=== PATIENT | male | born 1950 | race Caucasian/White ===

== ENCOUNTER 2017-06-10 06:28 | Day surgery (SDC) | payer BC ==
[~2017-06-10] VITALS: Ht 175.3 cm; Wt 141.2 kg
[~2017-06-10 06:28] MED LIST: ASPIRIN81 M2 PO; ATORVASTATIN CA20 MG PO; BYSTOLIC10 MG PO; CARDURA4 MG PO; CENTRUM SILVER1 EAC1 PO; CLARITIN10 M3 PO; CLONIDINE HCL0.1 M1 PO; DIOVAN HCT 31 TABLE1 PO; NIFEDIPINE ER30 MG PO; POTASSIUM CHLO20 ME2 PO; TEMAZEPAM15 MG PO
[2017-06-10 14:00] VITALS: BP 189/85
[2017-06-10 20:00] VITALS: BP 180/78
[2017-06-10 23:55] VITALS: BP 152/70
[2017-06-11 04:00] VITALS: BP 161/73
[2017-06-11 05:36] LABS: BASOPHIL (%) 0.5 % (0-1); EOSINOPHIL (%) 2.7 % (0-5); EOSINOPHIL COUNT 0.2 K/uL (0-0.3); HEMATOCRIT 39.4 % (38.0-50.0); HEMOGLOBIN 13.6 G/DL (12.5-16.6); IMMATURE GRANULOCYTE (%) 0.5 % (0.0-0.7); LYMPHOCYTE (%) 17.7 % (15-42); LYMPHOCYTE COUNT 1.5 K/uL (1.0-2.8); MCH 30.2 PG (29.0-34.0); MCHC 34.5 G/DL (30.0-36.0); MCV 87.6 FL (86-99); MONOCYTE COUNT 0.8 K/uL (0-0.8); NEUTROPHIL (%) 69.6 % (45-76); NEUTROPHIL COUNT 5.9 K/uL (1.8-6.4); PLATELET COUNT 162 K/uL (156-360); RBC DIS.WIDTH-CV 15.5 % (11.8-14.6); RBC DIS.WIDTH-SD 49.2 % (39-53); WHITE BLOOD COUNT 8.5 K/uL (4.1-10.2)
[2017-06-11 06:04] LABS: CHLORIDE 106 MEQ/L (99-109); CREATININE 1.1 MG/DL (0.6-1.3); GFR ESTIMATE (CALCULATED) > 59 mL/min/ (58.99-99999); GLUCOSE 145 mg/dL (70-99); POTASSIUM 3.3 MEQ/L (3.7-5.4); SODIUM 140 MEQ/L (136-147); UREA NITROGEN (BUN) 14 mg/dL (9-23)
[2017-06-11 08:59] VITALS: BP 157/77
[2017-06-11] MEDS ORDERED: BRILINTA90 MG PO (11:51)
[2017-06-11] MEDS ORDERED: ATORVASTATIN CA80 MG PO (11:51)
[2017-06-11] MEDS ORDERED: NITROSTAT0.4 MG SL (11:52)
[2017-06-11] MEDS ORDERED: CLONIDINE HCL0.2 MG PO (11:52)
[2017-06-11 12:10] VITALS: BP 168/73
== END 2017-06-11 12:45 | disposition home or self-care (01) ==
LOC: CATH 06:28 → ENRESERV 10:01 → 2SOUTH 10:30 → ENRESERV 11:15 → 4EAST 13:05
PROVIDERS: Internal Medicine Interventional Cardiology
DX: I25.110 Atherosclerotic heart disease of native coronary artery with unstable angina pectoris (principal); I34.0 Nonrheumatic mitral (valve) insufficiency; E78.2 Mixed hyperlipidemia; I10 Essential (primary) hypertension; R73.01 Impaired fasting glucose; E66.01 Morbid (severe) obesity due to excess calories; Z68.42 Body mass index [BMI] 45.0-49.9, adult; G47.30 Sleep apnea, unspecified; Z79.82 Long term (current) use of aspirin; Z80.0 Family history of malignant neoplasm of digestive organs; Z82.49 Family history of ischemic heart disease and other diseases of the circulatory system; Z82.5 Family history of asthma and other chronic lower respiratory diseases; Z80.6 Family history of leukemia
CPT/HCPCS: 80048; 85025; 85347; 93005; 94799; C1725; C1769; C1874; C1887; G0378; J0360; J0461; J1644; J2250; J3010; J7030